=== PATIENT | female | born 1980 | race Two or more races ===

== ENCOUNTER 2018-04-10 21:18 | Inpatient (IN) | payer OTHER ==
[~2018-04-10] VITALS: Ht 157.5 cm; Wt 2.3 kg
[2018-04-10] MEDS ORDERED: PRENATAL 19 TA1 EACH PO (21:24)
[2018-04-10] MEDS ORDERED: LABETALOL HCL100 MG PO (21:25)
[2018-04-10] MEDS ORDERED: IRON18 MG PO (21:26)
[2018-04-10] MEDS ORDERED: TYLENOL EXTRA500 MG PO (21:27)
== END 2018-04-26 10:08 | disposition home or self-care, planned readmission (81) | DRG 786 ==
LOC: ICU 21:18 → LDR 21:18 → OB/GYN 04-11 18:13 → ICU 04-13 16:19 → OB/GYN 04-21 11:07
PROVIDERS: Obstetrics & Gynecology Maternal & Fetal Medicine
PROC: 4A1HXCZ Monitoring of Products of Conception, Cardiac Rate, External Approach (ICD-10-PCS; 2018-04-10)
PROC: 8E0ZXY6 Isolation (ICD-10-PCS; 2018-04-13)
PROC: 30233N1 Transfusion of Nonautologous Red Blood Cells into Peripheral Vein, Percutaneous Approach (ICD-10-PCS; 2018-04-13)
PROC: BT43ZZZ Ultrasonography of Bilateral Kidneys (ICD-10-PCS; 2018-04-13)
PROC: B246ZZZ Ultrasonography of Right and Left Heart (ICD-10-PCS; 2018-04-13)
PROC: 3E0F7GC Introduction of Other Therapeutic Substance into Respiratory Tract, Via Natural or Artificial Opening (ICD-10-PCS; 2018-04-13)
PROC: 4A033R1 Measurement of Arterial Saturation, Peripheral, Percutaneous Approach (ICD-10-PCS; 2018-04-13)
PROC: 0BH17EZ Insertion of Endotracheal Airway into Trachea, Via Natural or Artificial Opening (ICD-10-PCS; 2018-04-14)
PROC: 5A1945Z Respiratory Ventilation, 24-96 Consecutive Hours (ICD-10-PCS; 2018-04-14)
PROC: 10D00Z1 Extraction of Products of Conception, Low, Open Approach (ICD-10-PCS; principal; 2018-04-14 13:00)
PROC: BB24ZZZ Computerized Tomography (CT Scan) of Bilateral Lungs (ICD-10-PCS; 2018-04-15)
DX: O98.813 Other maternal infectious and parasitic diseases complicating pregnancy, third trimester (principal); A41.9 Sepsis, unspecified organism; J96.00 Acute respiratory failure, unspecified whether with hypoxia or hypercapnia; O60.14X0 Preterm labor third trimester with preterm delivery third trimester, not applicable or unspecified; J81.0 Acute pulmonary edema; O23.03 Infections of kidney in pregnancy, third trimester; O14.03 Mild to moderate pre-eclampsia, third trimester; O99.013 Anemia complicating pregnancy, third trimester; O12.03 Gestational edema, third trimester; O99.513 Diseases of the respiratory system complicating pregnancy, third trimester; O34.211 Maternal care for low transverse scar from previous cesarean delivery; O75.82 Onset (spontaneous) of labor after 37 completed weeks of gestation but before 39 completed weeks gestation, with delivery by (planned) cesarean section; Z3A.33 33 weeks gestation of pregnancy; Z37.0 Single live birth; J11.1 Influenza due to unidentified influenza virus with other respiratory manifestations; B96.29 Other Escherichia coli [E. coli] as the cause of diseases classified elsewhere; D50.0 Iron deficiency anemia secondary to blood loss (chronic)